=== PATIENT | male | born 1980 | race Caucasian/White ===

== ENCOUNTER 2018-10-04 11:05 | Inpatient (IN) | payer MEDICAID, OTHER ==
[2018-10-04 12:48] LABS: ADD MAN DIFF? NO
[2018-10-04] MEDS: LACTATED RINGER'S 1,000 ML IV (12:49)
[2018-10-04] MEDS: morphine 4 MG/ML VIAL IV (12:49)
[2018-10-04] MEDS: ONDANSETRON 4 MG INJ IV (12:49)
[2018-10-04 12:54] LABS: BASOPHILS % 0.3 % (0.0-2.0); HEMATOCRIT 42.2 % (42.0-52.0); HEMOGLOBIN 13.9 g/dl (14.0-18.0); LYMPHOCYTES # 0.7 10^3/ul (0.8-2.9); MEAN CORPUSCULAR HEMOGLOBIN 26.6 pg (29.0-33.0); MEAN CORPUSCULAR HGB CONC 32.9 g/dl (32.0-37.0); MEAN CORPUSCULAR VOLUME 80.7 fl (82.0-101.0); MEAN PLATELET VOLUME 9.1 fl (7.4-10.4); MONOCYTES % 7.6 % (0.0-11.0); NEUTROPHIL # 11.4 10^3/ul (1.6-7.5); NEUTROPHILS % 86.6 % (39.0-77.0); PLATELET COUNT 332 10^3/UL (140-415); RED BLOOD COUNT 5.23 10^6/ul (4.70-6.10); RED CELL DISTRIBUTION WIDTH 13.2 % (11.5-14.5)
[2018-10-04 12:54] LABS: WHITE BLOOD COUNT 13.1 10^3/ul (4.8-10.8)
[2018-10-04 13:16] LABS: ALANINE AMINOTRANSFERASE 23 IU/L (13-69); ALBUMIN 4.3 g/dl (3.3-4.9); ALBUMIN/GLOBULIN RATIO 1.34; ALKALINE PHOSPHATASE 155 IU/L (42-121); ANION GAP 13 (5-13); ASPARTATE AMINO TRANSFERASE 22 IU/L (15-46); BILIRUBIN,INDIRECT 0.8 mg/dl (0-1.1); BILIRUBIN,TOTAL 0.8 mg/dl (0.2-1.3); BLOOD UREA NITROGEN 17 mg/dl (7-20); CALCIUM 10.4 mg/dl (8.4-10.2); CARBON DIOXIDE 26 mmol/L (21-31); CHLORIDE 104 mmol/L (97-110); CREATININE 0.57 mg/dl (0.61-1.24); Estimated GFR > 60 mL/min (>60); GLUCOSE 116 mg/dl (70-220); LIPASE 41 U/L (23-300); POTASSIUM 3.8 mmol/L (3.5-5.1); SODIUM 143 mmol/L (135-144); TOTAL PROTEIN 7.5 g/dl (6.1-8.1)
[2018-10-04 13:33] LABS: FREE T4 (FREE THYROXINE) 6.33 ng/dl (0.79-2.35)
[2018-10-04 13:48] LABS: THYROID STIMULATING HORMONE < 0.015 MIU/L (0.465-4.680)
[2018-10-04] MEDS: SOD CHLORIDE 0.9% 100 ML (13:54)
[2018-10-04] MEDS: IOHEXOL 300MG/ML 150 ML BTL (13:55)
[2018-10-04] MEDS: PROPRANOLOL 40 MG TAB PO ×2 (15:15→21:11)
[2018-10-04] MEDS ORDERED: ONDANSETRON 4 MG INJ IV ×2 (15:30)
[2018-10-04] MEDS ORDERED: ACETAMINOPHEN 325 MG TAB PO ×2 (15:30)
[2018-10-04] MEDS: SOD CHLORIDE 0.9% 1,000 ML IV (15:45)
[2018-10-04] MEDS: LOPERAMIDE 2 MG CAP PO (18:18)
[2018-10-04] MEDS: DEXAMETHASONE 4 MG TAB PO (18:41)
[2018-10-04] MEDS: METHIMAZOLE 5 MG TAB PO ×2 (18:42→21:12)
[2018-10-04] MEDS: PROPYLTHIOURACIL 50 MG TAB PO (18:43)
[2018-10-04] MEDS: CHOLESTYRAMINE 4 GM PACKET PO (21:14)
[2018-10-04 23:44] LABS: AMPHETAMINE/METHAMPHETAMINE Negative (NEGATIVE); BARBITURATES Negative (NEGATIVE); BENZODIAZEPINES Negative (NEGATIVE); CANNABINOIDS Negative (NEGATIVE); COCAINE Negative (NEGATIVE)
[2018-10-04 23:47] LABS: OPIATES Positive (NEGATIVE)
[2018-10-05 04:23] LABS: ADD UMIC YES; UR ASCORBIC ACID NEGATIVE (NEGATIVE); UR BILIRUBIN (Dip) NEGATIVE (NEGATIVE); UR BLOOD (Dip) 1+ mg/dL (NEGATIVE); UR CLARITY CLEAR (CLEAR); UR COLOR YELLOW (YELLOW); UR GLUCOSE (Dip) NEGATIVE (NEGATIVE); UR KETONES (Dip) TRACE mg/dL (NEGATIVE); UR LEUKOCYTE ESTERASE (Dip) NEGATIVE Leu/ul (NEGATIVE); UR NITRITE (Dip) NEGATIVE (NEGATIVE); UR SPECIFIC GRAVITY (Dip) 1.021 (1.003-1.030); UR TOTAL PROTEIN (Dip) NEGATIVE (NEGATIVE); UR UROBILINOGEN (Dip) NEGATIVE (NEGATIVE)
[2018-10-05 06:22] LABS: ADD MAN DIFF? NO; BASOPHILS % 0.1 % (0.0-2.0); HEMATOCRIT 38.8 % (42.0-52.0); HEMOGLOBIN 12.6 g/dl (14.0-18.0); LYMPHOCYTES # 0.8 10^3/ul (0.8-2.9); LYMPHOCYTES % 10.1 % (15.0-51.0); MEAN CORPUSCULAR HEMOGLOBIN 26.3 pg (29.0-33.0); MEAN CORPUSCULAR HGB CONC 32.5 g/dl (32.0-37.0); MEAN PLATELET VOLUME 9.7 fl (7.4-10.4); MONOCYTE # 0.2 10^3/ul (0.3-0.9); MONOCYTES % 2.4 % (0.0-11.0); NEUTROPHILS % 87.3 % (39.0-77.0); PLATELET COUNT 308 10^3/UL (140-415); RED BLOOD COUNT 4.79 10^6/ul (4.70-6.10); RED CELL DISTRIBUTION WIDTH 13.4 % (11.5-14.5)
[2018-10-05 07:21] LABS: ANION GAP 13 (5-13); BLOOD UREA NITROGEN 20 mg/dl (7-20); CALCIUM 9.4 mg/dl (8.4-10.2); CARBON DIOXIDE 23 mmol/L (21-31); CHLORIDE 105 mmol/L (97-110); CREATININE 0.54 mg/dl (0.61-1.24); Estimated GFR > 60 mL/min (>60); GLUCOSE 167 mg/dl (70-220); MAGNESIUM 1.8 mg/dl (1.7-2.5); PHOSPHORUS 4.9 mg/dl (2.5-4.9); POTASSIUM 3.8 mmol/L (3.5-5.1); SODIUM 141 mmol/L (135-144)
[2018-10-05 07:28] LABS: HEMOGLOBIN A1C 5.5 % (0-5.9)
[2018-10-05 07:30] LABS: FREE T4 (FREE THYROXINE) 5.33 ng/dl (0.79-2.35)
[2018-10-05] MEDS: METHIMAZOLE 5 MG TAB PO ×2 (08:09→12:22)
[2018-10-05] MEDS: CHOLESTYRAMINE 4 GM PACKET PO (08:09)
[2018-10-05] MEDS: PROPRANOLOL 40 MG TAB PO (08:10)
[2018-10-05] MEDS: FERROUS SULFATE (EC) 325 MG TAB PO (13:07)
[2018-10-05] MEDS: DEXAMETHASONE 4 MG TAB PO (14:53)
[2018-10-05] MEDS ORDERED: METHIMAZOLE 5 MG TAB PO (21:00)
[2018-10-07 21:07] LABS: TSH RECEPTOR ANTIBODY 51 (< OR = 16)
== END 2018-10-05 17:13 | disposition home or self-care (01) | DRG 645 ==
LOC: E/R 11:05 → TEL 17:00
DX: E05.00 Thyrotoxicosis with diffuse goiter without thyrotoxic crisis or storm (principal); Z91.14 Patient's other noncompliance with medication regimen; A08.4 Viral intestinal infection, unspecified
CPT/HCPCS: 36415; 74177; 76536; 80048; 80053; 80307; 81001; 83036; 83690; 83735; 84100; 84235; 84439; 84443; 85025; 93005; 96374; 96375; 99285-25